=== PATIENT | female | born 1975 | race Hispanic/Latino ===

== ENCOUNTER 2017-02-13 07:00 | Day surgery (SDC) | payer SELFPAY ==
[2017-02-13] VITALS (10 sets, daily range): BP systolic 85–126; BP diastolic 54–77; PULSE 75–92; RESP 11–16; O2SAT 98–100
[~2017-02-13] VITALS: Ht 160 cm; Wt 67.8 kg
[~2017-02-13 07:00] MED LIST: CeFAZolin Inj 2 GM in IV Premix 1 EACH IV SCH; IBUP800T28 PO
[2017-02-13] MEDS ORDERED: MetoCLOpramide 5 mg/mL 2 mL Inj ONE (07:01)
[2017-02-13] MEDS ORDERED: fentaNYL-PF 50 mCg/mL 2 mL Inj ONE (07:01)
[2017-02-13] MEDS ORDERED: Rocuronium 10 mg/mL 5 mL Inj ONE (07:01)
[2017-02-13] MEDS ORDERED: Dexamethasone 4 mg/mL Inj ONE (07:01)
[2017-02-13] MEDS ORDERED: Neostigmine 1 mg/mL 10 mL Inj ONE (07:01)
[2017-02-13] MEDS ORDERED: Ondansetron 2 mg/mL 2 mL Inj ONE (07:01)
[2017-02-13] MEDS ORDERED: Glycopyrrolate 0.2 MG/ML 1mL Inj ONE (07:01)
[2017-02-13] MEDS ORDERED: Phenylephrine/NS-PF 100 mCg/mL 5 mL Syringe IVPUSH ONE (07:01)
[2017-02-13] MEDS ORDERED: Propofol 10,000 mCg/mL 20 mL Inj ONE (07:01)
[2017-02-13] MEDS: Lactated Ringer's 1,000 ML IV SCH ×3 (07:14→11:35)
--- NOTE | 2017-02-13 08:17 | PCM.HPANE ---
Patient Data Surgeon Admitting Provider: Attending Provider:Taco Guillen DPM Primary Care Physician:Xiomy Other Provider:Cedrick Nichols Anesthesia Reason for Visit Right Achilles Tendon Rupture Ht/WT & BMI Height (Feet): 5 Height (Inches): 3 Weight (Kilograms): 67.8 Body Mass Index 26.00 Allergies Coded Allergies: No Known Allergies (Unverified , 01/08/16) Past Anesthesia History Anesthesia History: Denies:: Anesthesia Reactions Diabetes History Hx Diabetes?: No MRSA MRSA: No Medications Home Meds Incl Beta Nelsy: No Reported Medications Ibuprofen 800 Mg [id number] Mg PO Q6H PRN For Pain Ref 0 02/09/17 Discontinued Scripts Cyclobenzaprine 5 Mg Tablet5 Mg PO TID PRN Spasm #30 TABLET Prov:Jimmie Bee MD 01/08/16 Hydrocodone-Acetaminophen 5-325 mg 1 Each Tablet1-2 Tablet PO TID PRN For Pain # 30 TABLET Ref 0 Prov:Jimmie Bee MD 01/08/16 Ibuprofen 800 Mg [id number] Mg PO TID PRN For Pain #30 TABLET Ref 1 Prov:Jimmie Bee MD 01/08/16 History History of ENT Problems?: No HEENT History: Denies:: Abnormal Airway Cataracts Difficult Intubation Dysphagia Glaucoma Hearing Problem Sinus Problem TMJ Denture Type: None Teeth Condition: Within Normal Limits Hx of Heart Problems?: No Cardiovascular History: Denies:: Congestive Heart Failure Hypertension Hx of Respiratory Problem?: No Respiratory History: Denies:: Oxygen Administration Tuberculosis Use of C-PAP Machine Hx Neurologic Problems?: No Hx of GI Problems?: Yes Gastrointestinal History: Positive for:: Heartburn Hx of Problems?: No Female Hx: Denies:: Currently (NEG PREG TEST) Skin History: Denies:: History Skin Disorders? Pressure Ulcers Hx Musculoskeletal Problems?: Yes Musculoskeletal History: Positive for:: Musculoskeletal Trauma (right achilles tendon rupture current admission problem) Hx of Psycho/Social Problems?: No Hx Surgeries?: Yes (renan) Hx Any Other Health Problems?: Yes Other History: Denies:: Cancer Thyroid Disease Hx Diabetes: No Hx Alcohol Use: NoHx Substance Use: No Smoking Status: Never Smoker Have You Smoked inLast 12 mo: No Stop/Bang Treated for Sleep Apnea?: No Do You Have a CPAP Machine?: No S-Snoring: Do You Snore Loudly: No T-Tired: feel tired, fatigued: No O-Obsered: Observed not breath: No P-Blood Pressure: treated: No B- Body Mass Index > 35 kg/m2: No A- Age over 50: No N- Neck Large Circumference: No G- Gender Male: No MANUEL Total Score: 0 MANUEL Risk Assessment: Low Risk, <3 Yes Risk Assessment Category Category 1A: Patient has history of documented sleep apnea, and HAS NOT received any narcotic, sedative or anesthesia administration during this stay. Category 1B: Patient has history of documented sleep apnea, and HAS received any narcotic , sedative or anesthesia administration during this stay Category 2: Patient has SUSPECTED Obstructive Sleep Apnea, and HAS received any narcotic , sedative or anesthesia administration during this stay. Category 3: Patient has SUSPECTED Obstructive Sleep Apnea and HAS NOT received narcotic, sedative or anesthesia administration during this stay. Category 4: Outpatient in Procedural Areas with known sleep apnea or who screen positive for High Risk via the STOP/BANG questionnaire. Exam Exam Vital Signs Vital Signs Date Time Temp Pulse Resp B/P Pulse Ox O2 Delivery O2 Flow Rate FiO2 02/13/17 07:32 36.4 76 16 117/60 100 Room Air General Appearance: Oriented X3 HEENT/AIRWAY: MP 1 Lungs: Normal Air Movement Heart: Regular Rate/Rhythm Meds/Labs/Diagnostics Admission Meds Current Medications Lactated Ringer's (Lr) 1,000 ml @ 120 mls/hr Q8H20M IV Last administered on 07:14; Start 02/13/17 at 05:00; Stop 02/13/17 at 13:19 Plan Impression Patient chart reviewed, patient interviewed and anesthestic plan with risks, benefits, and alternatives discussed, and informed consent obtained. ASA Physical Status: ASA1 Normal Healthy Anesthetic Plan: GA, Regional Block Bene/Risks/Altern/Consents: Yes HP Complete Prior to Induction: Yes Jack Minor MD Feb 13, 2017 08:17
[2017-02-13] MEDS ORDERED: Gentamicin 40 mg/mL 2 mL Inj IRRIGATION ONE (09:15)
[2017-02-13] MEDS ORDERED: Bupivacaine-MPF 0.5% W/EPI 30 mL Inj INFILTRATE ONE (09:15)
[2017-02-13] MEDS ORDERED: Lactated Ringer's 500 ML IV PRN (09:42)
[2017-02-13] MEDS ORDERED: Lactated Ringer's 1,000 ML IV SCH (09:42)
[2017-02-13] MEDS ORDERED: Labetalol 5 mg/mL 4 mL Inj IV PRN (09:45)
[2017-02-13] MEDS ORDERED: EPHEDrine Sulfate 50 mg/mL Inj IVPUSH PRN (09:45)
[2017-02-13] MEDS ORDERED: Atropine 0.4 mg/mL Inj IVPUSH PRN (09:45)
[2017-02-13] MEDS ORDERED: Phenylephrine 10,000 mCg/mL Inj IVPUSH PRN (09:45)
[2017-02-13] MEDS ORDERED: HYDROmorphone 1 mg/mL Inj IVPUSH PRN (09:45)
[2017-02-13] MEDS ORDERED: Ondansetron 2 mg/mL 2 mL Inj IVPUSH PRN (09:45)
[2017-02-13] MEDS ORDERED: MetoCLOpramide 5 mg/mL 2 mL Inj IVPUSH PRN (09:45)
[2017-02-13] MEDS ORDERED: fentaNYL-PF 50 mCg/mL 2 mL Inj IVPUSH PRN (09:45)
[2017-02-13] MEDS ORDERED: oxyCODONE-Acetamin 5-325 mg Tablet PO PRN (10:45)
--- NOTE | 2017-02-13 10:47 | PCM.PODPO ---
Podiatry Operative Report Date of Service: Feb 13, 2017 Date of Service Feb 13, 2017 Pre Operative Diagnosis Achilles tendon rupture right lower extremity Post Operative Diagnosis Same as preoperative diagnoses Procedure Open repair of right Achilles tendon Surgeon Surgeon: Taco Guillen DPM Assistants: None Indication for Procedure Achilles tendon rupture right lower extremity Findings Rupture of the proximal aspect of the Achilles tendon midsubstance with minor tendon fray Details of Procedure Patient was identified in the preoperative holding area all preoperative comorbidities and allergies were identified and thoroughly discussed. Patient was transported into the operating room and placed on the operating room table in the prone position following induction of general anesthesia by the anesthesia service. The patient was given a preoperative popliteal block prior to entering the operating room. The patient was then prepped and draped in the normal aseptic technique. Attention was first paid to the posterior aspect of the right lower extremity. A linear incision approximately 10 cm in length was made overlying the mid substance of the Achilles tendon. Once through the initially her skin all subcutaneous neurovascular structures were identified and retracted out of the surgical field. Sharp dissection was carried down through subcutaneous tissue to identify peritenon. A fresh #15 blade was then utilized to incise through peritenon reflecting it both medially and laterally exposing the underlying Achilles tendon. Inspection of the Achilles tendon revealed a full-thickness rupture of the proximal aspect of the Achilles mid substance with necrotic tendon tissue of approximately 1.5 cm spanning the rupture site. All necrotic and nonviable tendon tissue was resected. [place] stitching was performed in the proximal and distal stump utilizing #2 FiberWire. The foot was placed into approximately 10 of plantar flexion and the rupture was anastomosed with FiberWire and additional 2. 0 Vicryl. This wound was ankle grossly flushed with large amounts of normal saline. The ankle was placed through range of motion to approximately 10 of dorsiflexion without any gapping noted of the repair site. The peritenon was then carefully repaired utilizing number 3. 0 Vicryl. Subcutaneous closure was performed utilizing number 3. 0 Vicryl and 3. 0 Prolene suture was utilized for skin closure. The patient was then placed into a dressing consisting of Adaptic sterile 4 x 4 gauze Kerlix and a mildly compressive Montgomery compression dressing with a posterior splint. No competitions occur during this procedure. The patient was transferred back into the supine position and extubated without issue by the anesthesia service. Grafts, Implants: Implants-See Implant Record (#2 FiberWire suture) Complications There were no periprocedural complications identified. Condition Stable Anesthetic Administered: GA Catheters: None Output, Estimated Blood Loss: 20 Blood Admin during surgery: No Surgical Cast or Splint: Well-padded Short Leg Splint Surgical Specimen Removed: No Specimen sent to Pathology: No Post Operative Plan Strict nonweightbearing right lower extremity Ice and elevate right lower extremity Keep dressing clean dry and intact Follow-up in office in 1 week Taco Guillen DPM Feb 13, 2017 10:47
--- NOTE | 2017-02-13 14:21 | PCM.ANEP1 ---
Post Anesthesia PACU Phase 1 Assessment Vital Signs Vital Signs Date Time Temp Pulse Resp B/P Pulse Ox O2 Delivery O2 Flow Rate FiO2 02/13/17 12:09 36.4 81 16 115/65 99 Room Air 02/13/17 11:40 36.8 75 11 126/72 99 Room Air 02/13/17 11:30 82 11 126/59 100 Room Air 02/13/17 11:15 89 12 110/72 100 Room Air 02/13/17 11:00 36.9 78 13 115/77 98 Room Air 02/13/17 10:55 83 14 85/63 100 Room Air 02/13/17 10:50 82 15 118/68 99 Room Air 02/13/17 10:45 89 16 108/54 100 Simple Mask 8 02/13/17 10:41 36.8 92 14 121/61 100 Simple Mask 8 02/13/17 07:32 36.4 76 16 117/60 100 Room Air Anesthetic Administered: GA Level of Alertness: Awake, talking GORDON's with Equal Strength: Yes Pain: No Nausea or Vomiting: No CV Function & Hydration Stable: No Airway Device: N/A Oxygen Delivery: Room Air Lungs: Normal Air Movement Dermatome Level: Full Sensation PACU Phase 2 Assessment Complications: No Follow up Care: N/A Patient Instructions Provided: N/A Willie Bobo MD Feb 13, 2017 14:21
== END 2017-02-13 23:59 | disposition home or self-care (01) ==
LOC: SAS 07:00
PROVIDERS: ATTEND Podiatrist Foot & Ankle Surgery
DX: S86.011A Strain of right Achilles tendon, initial encounter (principal); X50.0XXA Overexertion from strenuous movement or load, initial encounter; Y93.39 Activity, other involving climbing, rappelling and jumping off; K21.9 Gastro-esophageal reflux disease without esophagitis
CPT/HCPCS: 28200; 76942; J0690; J1100; J1580; J1885; J2175; J2370; J2405; J2710; J2765; J3010; J7120